=== PATIENT | male | born 1970 | race African-American/Black ===

== ENCOUNTER 2020-07-20 19:52 | Emergency (ER) | payer MEDICAID ==
[~2020-07-20] VITALS: Ht 182.9 cm; Wt 75.0 kg
[2020-07-20] MEDS ORDERED: SODIUM CHLORIDE 0.9% 1,000 ML IV ONE (20:30)
[2020-07-20 20:46] LABS: BASOPHILS % 0.6 % (0.0-2.0); EOSINOPHILS % 0.1 % (0.0-5.0); HEMATOCRIT. 42.5 % (42.0-52.0); HEMOGLOBIN. 14.1 g/dL (14.0-18.0); LYMPHOCYTES % 23.6 % (20.0-50.0); MEAN CORPUSCULAR HEMOGLOBIN 31.4 pg (28.0-32.0); MEAN CORPUSCULAR VOLUME 94.6 fL (80.0-94.0); MEAN PLATELET VOLUME 8.9 fl (7.4-10.4); MONOCYTES % 6.2 % (2.0-8.0); NEUTROPHILS % 69.5 % (40.0-76.0); PLATELET 185 x1000/uL (130-400); RED BLOOD CELL COUNT 4.49 mill/uL (4.7-6.1); RED CELL DISTRIBUTION WIDTH 14.5 % (11.6-14.6)
[2020-07-20 20:52] LABS: CHLORIDE 104 mEq/L (98-107)
[2020-07-20 20:56] LABS: ETHANOL BLOOD 294 mg/dL
[2020-07-20 20:57] LABS: CLARITY URINE CLEAR (CLEAR); COLOR URINE YELLOW (YELLOW); KETONES URINE NEGATIVE (NEGATIVE); LEUKOCYTE ESTERASE URINE NEGATIVE (NEGATIVE); NITRITE URINE NEGATIVE (NEGATIVE); OCCULT BLOOD URINE NEGATIVE (NEGATIVE); PROTEIN URINE NEGATIVE (NEGATIVE); SPECIFIC GRAVITY URINE 1.004 (1.005-1.030); UROBILINOGEN URINE 0.2 E.U./dL (0.2-1.0)
[2020-07-20 21:11] LABS: *AMPHETAMINES SCREEN URINE NEGATIVE (NEGATIVE); *BARBITURATES SCREEN URINE NEGATIVE (NEGATIVE); *BENZODIAZEPINES SCREEN URINE NEGATIVE (NEGATIVE)
[2020-07-20 21:12] LABS: *COCAINE SCREEN URINE NEGATIVE (NEGATIVE); CANNABINOID URINE SCREEN NEGATIVE (NEGATIVE); METHADONE URINE SCREEN NEGATIVE (NEGATIVE); OPIATES URINE SCREEN NEGATIVE (NEGATIVE); PHENCYCLIDINE URINE SCREEN NEGATIVE (NEGATIVE)
[2020-07-21 00:30] VITALS: BP 127/68
== END 2020-07-21 00:30 | disposition home or self-care (01) ==
LOC: ER 19:52
DX: F10.129 Alcohol abuse with intoxication, unspecified (principal); F17.200 Nicotine dependence, unspecified, uncomplicated; Y90.9 Presence of alcohol in blood, level not specified
CPT/HCPCS: 36415; 80053; 80305; 80320; 81003; 85025; 99283; J7030; G0480

== ENCOUNTER 2021-06-10 19:44 | Inpatient (IN) | payer MEDICAID ==
[~2021-06-10] VITALS: Ht 182.9 cm; Wt 74.8 kg
[2021-06-10] MEDS ORDERED: SODIUM CHLORIDE 0.9% 1,000 ML IV ONE ×2 (20:15→21:45)
[2021-06-10 21:17] LABS: CHLORIDE 118 mEq/L (98-107)
[2021-06-10] MEDS ORDERED: HALOPERIDOL LACTATE 5MG/ML VIAL IM STA (21:37)
[2021-06-10] MEDS ORDERED: LORAZEPAM 2MG/ML CPJ IM STA (21:37)
[2021-06-10 22:52] LABS: ETHANOL BLOOD 271 mg/dL
[2021-06-10 23:07] LABS: BASOPHILS % 0.6 % (0.0-2.0); EOSINOPHILS % 0.1 % (0.0-5.0); HEMATOCRIT. 40.8 % (42.0-52.0); HEMOGLOBIN. 13.4 g/dL (14.0-18.0); LYMPHOCYTES % 31.6 % (20.0-50.0); MEAN CORPUSCULAR HEMOGLOBIN 32.1 pg (28.0-32.0); MEAN CORPUSCULAR VOLUME 97.8 fL (80.0-94.0); MEAN PLATELET VOLUME 9.5 fl (7.4-10.4); MONOCYTES % 7.3 % (2.0-8.0); NEUTROPHILS % 60.4 % (40.0-76.0); PLATELET 158 x1000/uL (130-400); RED BLOOD CELL COUNT 4.17 mill/uL (4.7-6.1); RED CELL DISTRIBUTION WIDTH 15.6 % (11.6-14.6)
[2021-06-11] MEDS ORDERED: SODIUM CHLORIDE 0.9% 1,000 ML IV ONE (02:00)
[2021-06-11] MEDS ORDERED: ZOLPIDEM TARTRATE 5MG TABLET PO PRN (07:30)
[2021-06-11] MEDS ORDERED: MAGNESIUM/ALUMINUM HYDROXIDE/SIMETHICONE 30ML UDC PO PRN (07:30)
[2021-06-11] MEDS ORDERED: GUAIFENESIN 200MG/10ML SUGAR FREE UDC PO PRN (07:30)
[2021-06-11] MEDS ORDERED: DOCUSATE SODIUM 100MG CAPSULE PO PRN (07:30)
[2021-06-11] MEDS ORDERED: ACETAMINOPHEN 325MG TABLET PO PRN ×2 (07:30)
[2021-06-11] MEDS ORDERED: IPRATROPIUM/ALBUTEROL 0.5-3(2.5)MG/3ML NEB NEB PRN (07:30)
[2021-06-11] MEDS ORDERED: ONDANSETRON HCL 4MG/2ML INJ IV PRN (07:30)
[2021-06-11] MEDS ORDERED: CLONIDINE 0.1MG TABLET PO PRN (07:30)
[2021-06-11] MEDS ORDERED: NITROGLYCERIN 0.4MG TABLET SL SL PRN (07:30)
[2021-06-11] MEDS ORDERED: KETOROLAC 15MG/ML VIAL IV PRN (07:30)
[2021-06-11] MEDS ORDERED: SODIUM CHLORIDE 0.9% 1000ML BAG (SEPSIS BOLUS) IV SCH (07:30)
[2021-06-11] MEDS ORDERED: MVI, ADULT NO.1 10 ML, FOLIC ACID 1 MG, THIAMINE HCL 100 MG in SODIUM CHLORIDE 0.9% 1,0... IV SCH ×4 (08:00)
[2021-06-11] MEDS: ENOXAPARIN 40MG/0.4ML SYR SUBCUT SCH (08:40)
[2021-06-11 08:42] LABS: FOLIC ACID (FOLATE) SERUM 4.7 ng/mL (>5.38)
[2021-06-11 12:00] VITALS: BP_SYST 146; BP_SYST 149; BP_DIAS 103; BP_DIAS 85
[2021-06-11] MEDS: PANTOPRAZOLE SODIUM 40 MG/VIAL IV SCH (14:23)
[2021-06-11 16:00] VITALS: BP 146/87
[2021-06-11 20:00] VITALS: BP 122/81
[2021-06-11] MEDS ORDERED: LORAZEPAM 2MG/ML CPJ IV PRN ×2 (20:30)
[2021-06-11] MEDS ORDERED: FOLIC ACID 1 MG in SODIUM CHLORIDE 0.9% 500 ML IV NR (22:00)
[2021-06-12] VITALS: BP 126/80
[2021-06-12 00:32] LABS: CREATINE KINASE MB FRACTION 1.3 ng/mL (0.5-3.6)
[2021-06-12 04:00] VITALS: BP 128/85
[2021-06-12 08:00] VITALS: BP 132/85
[2021-06-12] MEDS: PANTOPRAZOLE SODIUM 40 MG/VIAL IV SCH (08:26)
[2021-06-12] MEDS: ENOXAPARIN 40MG/0.4ML SYR SUBCUT SCH (08:26)
[2021-06-12] MEDS: FOLIC ACID 1MG TABLET PO SCH (08:27)
[2021-06-12 08:40] LABS: BASOPHILS % 0.7 % (0.0-2.0); EOSINOPHILS % 0.3 % (0.0-5.0); HEMATOCRIT. 35.3 % (42.0-52.0); HEMOGLOBIN. 11.7 g/dL (14.0-18.0); LYMPHOCYTES % 30.5 % (20.0-50.0); MEAN CORPUSCULAR HEMOGLOBIN 31.8 pg (28.0-32.0); MEAN PLATELET VOLUME 9.9 fl (7.4-10.4); NEUTROPHILS % 54.5 % (40.0-76.0); PLATELET 141 x1000/uL (130-400); RED BLOOD CELL COUNT 3.67 mill/uL (4.7-6.1); RED CELL DISTRIBUTION WIDTH 15.7 % (11.6-14.6)
[2021-06-12 09:04] LABS: CHLORIDE 111 mEq/L (98-107)
[2021-06-12 09:10] LABS: PHOSPHORUS 2.1 mg/dL (2.5-4.9)
[2021-06-12 12:00] VITALS: BP 146/56
[2021-06-12 16:00] VITALS: BP 141/95
[2021-06-12] MEDS ORDERED: POTASSIUM PHOS,M-BASIC-D-BASIC 20 MMOL in DEXT 5% WATER 243.3333 ML IV NR (18:00)
[2021-06-12 20:00] VITALS: BP 133/90
[2021-06-13] VITALS: BP 128/84
[2021-06-13 04:00] VITALS: BP 136/88
[2021-06-13 07:55] LABS: BASOPHILS % 1.2 % (0.0-2.0); EOSINOPHILS % 0.4 % (0.0-5.0); HEMATOCRIT. 35.4 % (42.0-52.0); HEMOGLOBIN. 11.9 g/dL (14.0-18.0); LYMPHOCYTES % 29.7 % (20.0-50.0); MEAN CORPUSCULAR HEMOGLOBIN 32.1 pg (28.0-32.0); MEAN CORPUSCULAR VOLUME 95.8 fL (80.0-94.0); MEAN PLATELET VOLUME 9.7 fl (7.4-10.4); MONOCYTES % 13.2 % (2.0-8.0); NEUTROPHILS % 55.5 % (40.0-76.0); PLATELET 132 x1000/uL (130-400); RED CELL DISTRIBUTION WIDTH 15.2 % (11.6-14.6)
[2021-06-13 08:00] VITALS: BP 134/87
[2021-06-13 08:04] LABS: CHLORIDE 111 mEq/L (98-107)
[2021-06-13 08:14] LABS: PHOSPHORUS 3.4 mg/dL (2.5-4.9)
[2021-06-13] MEDS: PANTOPRAZOLE SODIUM 40 MG/VIAL IV SCH (08:56)
[2021-06-13] MEDS: ENOXAPARIN 40MG/0.4ML SYR SUBCUT SCH (08:57)
[2021-06-13] MEDS: LISINOPRIL 10MG TABLET PO SCH (08:57)
[2021-06-13] MEDS: FOLIC ACID 1MG TABLET PO SCH (08:57)
[2021-06-13 12:00] VITALS: BP 122/91
[2021-06-13 16:00] VITALS: BP 125/89
[2021-06-13 16:45] LABS: *AMPHETAMINES SCREEN URINE NEGATIVE (NEGATIVE); *BARBITURATES SCREEN URINE NEGATIVE (NEGATIVE); CANNABINOID URINE SCREEN PRESUMTIVE POSITIVE (NEGATIVE); OPIATES URINE SCREEN NEGATIVE (NEGATIVE); PHENCYCLIDINE URINE SCREEN NEGATIVE (NEGATIVE)
[2021-06-13 16:46] LABS: *BENZODIAZEPINES SCREEN URINE NEGATIVE (NEGATIVE); *COCAINE SCREEN URINE NEGATIVE (NEGATIVE); METHADONE URINE SCREEN NEGATIVE (NEGATIVE)
[2021-06-13 20:00] VITALS: BP 131/88
[2021-06-14] VITALS (7 sets, daily range): BP systolic 117–141; BP diastolic 80–100
[2021-06-14] MEDS ORDERED: FAMOTIDINE 20MG/2ML VIAL IV SCH (09:00)
[2021-06-14] MEDS: FOLIC ACID 1MG TABLET PO SCH (09:17)
[2021-06-14] MEDS: ENOXAPARIN 40MG/0.4ML SYR SUBCUT SCH (09:18)
[2021-06-14] MEDS: LISINOPRIL 10MG TABLET PO SCH (09:19)
[2021-06-14] MEDS ORDERED: FOLI-43 MT (10:35)
[2021-06-14] MEDS ORDERED: MULT-1146 MT (10:35)
[2021-06-14] MEDS ORDERED: THIA50TA12 MT (10:35)
== END 2021-06-14 17:36 | disposition home or self-care (01) | DRG 52 ==
LOC: ER 19:44 → 6EST 06-11 03:56
PROVIDERS: ADMIT Internal Medicine; ATTEND Internal Medicine
DX: G92.8 Other toxic encephalopathy (principal); E87.0 Hyperosmolality and hypernatremia; D52.9 Folate deficiency anemia, unspecified; D63.8 Anemia in other chronic diseases classified elsewhere; E87.1 Hypo-osmolality and hyponatremia; E86.0 Dehydration; E11.9 Type 2 diabetes mellitus without complications; F17.200 Nicotine dependence, unspecified, uncomplicated; I10 Essential (primary) hypertension; R62.50 Unspecified lack of expected normal physiological development in childhood; G35 Multiple sclerosis; F10.229 Alcohol dependence with intoxication, unspecified; G31.9 Degenerative disease of nervous system, unspecified
CPT/HCPCS: 36415; 71045; 80053; 80061; 80305; 80320; 82550; 82553; 82607; 82746; 82962; 83036; 83540; 83550; 83605; 83735; 83880; 84100; 84443; 84484; 85025; 93306; 93970; 99285; C9113; J1630; J1650; J2060; J3411; J3490; J7030; J7040; J7060; G0480